=== PATIENT | female | born 1940 | race Two or more races ===

== ENCOUNTER 2018-06-11 09:18 | Outpatient (CLI) | payer OTHER | END 2018-06-11 09:39 | disposition home or self-care (01) | LOC: SONOGRAMA 09:18 | DX: C07 Malignant neoplasm of parotid gland (principal) ==

== ENCOUNTER 2018-11-27 13:50 | Outpatient (CLI) | payer OTHER | END 2018-11-27 14:39 | disposition home or self-care (01) | LOC: TOM 13:50 | DX: R55 Syncope and collapse (principal); E04.1 Nontoxic single thyroid nodule; M75.122 Complete rotator cuff tear or rupture of left shoulder, not specified as traumatic ==

== ENCOUNTER 2018-12-11 08:12 | Outpatient (CLI) | payer OTHER | END 2018-12-11 11:26 | disposition home or self-care (01) | LOC: RX STUDY 08:12 | DX: R10.13 Epigastric pain (principal) ==

== ENCOUNTER 2019-02-18 08:16 | Outpatient (CLI) | payer OTHER | END 2019-02-18 17:00 | disposition home or self-care (01) | LOC: TOM 08:16 | DX: D11.0 Benign neoplasm of parotid gland (principal) | CPT/HCPCS: 70491; Q9965 ==

== ENCOUNTER 2019-05-30 09:19 | Outpatient (CLI) | payer OTHER | END 2019-05-30 11:40 | disposition home or self-care (01) | LOC: SONOGRAMA 09:19 | DX: E04.2 Nontoxic multinodular goiter (principal) ==